=== PATIENT | male | born 1955 | race Caucasian/White ===

== ENCOUNTER 2017-08-02 16:35 | Emergency (ER) | payer OTHER ==
[~2017-08-02] VITALS: Ht 167.6 cm; Wt 80.7 kg
[~2017-08-02 16:35] MED LIST: AMLODIPINE BESYL5 MG PO; ENALAPRIL MALEA10 MG; FINASTERIDE5 MG PO; INTESTINEX1 CA1 PO; SIMVASTATIN10 MG; TAMS0.4C PO; ZOCOR PO
== END 2017-08-03 13:12 | disposition home or self-care (01) ==
LOC: ER 16:35
DX: J45.998 Other asthma (principal)

== ENCOUNTER 2017-08-17 09:51 | Day surgery (SDC) | payer OTHER | END 2017-08-17 13:50 | disposition home or self-care (01) | LOC: CIR.AMB 09:51 → AMB-ENDOS 13:30 → CIR.AMB 13:50 | DX: K57.32 Diverticulitis of large intestine without perforation or abscess without bleeding (principal); K64.1 Second degree hemorrhoids; I10 Essential (primary) hypertension; R19.7 Diarrhea, unspecified; J20.9 Acute bronchitis, unspecified; R10.32 Left lower quadrant pain ==

== ENCOUNTER 2018-04-18 07:57 | Day surgery (SDC) | payer OTHER ==
[~2018-04-18 07:57] MED LIST changes: +UROXATRAL10 MG PO
[2018-04-18] MEDS ORDERED: ZOFRAN ODT4 MG PO (10:36)
[2018-04-18] MEDS ORDERED: MIRALAX17 GM PO (10:36)
[2018-04-18] MEDS ORDERED: NEURONTIN300 MG PO (10:36)
[2018-04-18] MEDS ORDERED: PERCOCET 5-3251 EACH PO (10:36)
== END 2018-04-18 14:00 | disposition home or self-care (01) ==
LOC: CIR.AMB 07:57
DX: K40.90 Unilateral inguinal hernia, without obstruction or gangrene, not specified as recurrent (principal)